=== PATIENT | female | born 1950 | race Caucasian/White ===

== ENCOUNTER 2017-04-01 09:17 | Day surgery (SDC) | payer BC ==
[~2017-04-01 09:17] MED LIST: Acetaminophen TAB* 325 MG PO PRN; Buffered Lidocaine 1% SYRIN* 3 ML/SYR SYRINGE INTRADERM ONE
[2017-04-01] MEDS ORDERED: fentaNYL* 50 MCG/ML 2 ML VIAL (100 MCG VIAL) ONE (11:00)
[2017-04-01] MEDS ORDERED: Midazolam* 1 MG/ML 2 ML VIAL (2 MG) ONE ×2 (11:00→12:08)
[2017-04-01 12:08] VITALS: BP 152/74
[2017-04-01] MEDS ORDERED: Proparacaine 0.5% OPHTH.SOL* 15 ML BTL ONE (12:47)
[2017-04-01] MEDS ORDERED: Povidone Iodine 5% OPTH* 30 ML BTL ONE (12:47)
[2017-04-01] MEDS ORDERED: acetaZOLAMIDE TAB* 250 MG ONE (12:47)
[2017-04-01] MEDS ORDERED: Flurbiprofen 0.03% OPTH.SOL* 2.5 ML BTL ONE (12:47)
[2017-04-01] MEDS ORDERED: Neomycin/Polymy/Dex OPTH.SUSP* MAXITROL 0.1% 5 ML ONE (12:47)
[2017-04-01] MEDS ORDERED: Lidocaine 2% EPI 1:200000 MPF* 20 ML VIAL ONE (12:47)
[2017-04-01] MEDS ORDERED: Cyclopentolate 1% OPTH.SOL* 2 ML BTL ONE (12:47)
[2017-04-01] MEDS ORDERED: Lidocaine 1% MPF* 2 ML VIAL ONE (12:47)
[2017-04-01] MEDS ORDERED: Phenylephrine 2.5% OPTH.SOL* 2 ML BTL ONE (12:47)
--- NOTE | 2017-04-01 15:04 | OP ---
DATE OF OPERATION: 04/01/17 - [facility] DATE OF : 54 SURGEON: Schuyler Saini M.D. PREOPERATIVE DIAGNOSIS: Cataract, left eye. POSTOPERATIVE DIAGNOSIS: Cataract, left eye. OPERATIVE PROCEDURE: Phacoemulsification, left eye with IOL. DESCRIPTION OF PROCEDURE: The patient was brought to the operating room after being given 1/2% Alcaine with epinephrine drops in the preoperative area. The eye was prepped and draped in the usual sterile fashion. Sterile drape and eyelid speculum were placed. Again, topical 1/2% Alcaine with epinephrine was given. A paracentesis incision was made at the 3 o'clock position with the No.75 blade. Clear cornea incision 2.2 x 2.2-mm was created at the 6 o'clock position starting at the anterior limbus using the 2.2-mm keratome. The anterior chamber was irrigated with 0.4 mL of 1% non-preservative intracameral lidocaine and filled with DisCoVisc. A capsulorrhexis was completed using the cystotome and the Utrata forceps. Hydrodissection was performed with balanced salt solution. The lens nucleus was removed with the Phacoemulsification handpiece without incident. Cortex was removed with the irrigation-aspiration handpiece. The capsular bag was re-inflated using DisCoVisc and an SN60WF 21.5 implant was inserted with the shooter. The irrigation-aspiration handpiece was used to remove all residual DisCoVisc. The eye was refilled with balanced salt solution and the wound checked and found to be watertight. Topical Maxitrol drops were given. [id number]/[facility] #: [id number] MTDD
== END 2017-04-01 12:15 | disposition home or self-care (01) ==
LOC: OREAST 09:17
PROVIDERS: ATTEND Specialist
DX: H25.12 Age-related nuclear cataract, left eye (principal); H04.123 Dry eye syndrome of bilateral lacrimal glands; I10 Essential (primary) hypertension; E78.00 Pure hypercholesterolemia, unspecified; F41.1 Generalized anxiety disorder
CPT/HCPCS: A9270-GY; J2250; J3010; V2632

== ENCOUNTER 2017-04-08 07:44 | Day surgery (SDC) | payer BC ==
[2017-04-08] MEDS ORDERED: Midazolam* 1 MG/ML 2 ML VIAL (2 MG) ONE (09:42)
[2017-04-08 10:36] VITALS: BP 141/71
--- NOTE | 2017-04-08 12:35 | OP ---
DATE OF OPERATION: 04/08/2017 - [facility] DATE OF : 1950. SURGEON: Schuyler Saini M.D. PREOPERATIVE DIAGNOSIS: Cataract right eye. POSTOPERATIVE DIAGNOSIS: Cataract right eye. OPERATIVE PROCEDURE: Phacoemulsification right eye with IOL. DESCRIPTION OF PROCEDURE: The patient was brought to the operating room after being given 1/2% Alcaine with epinephrine drops in the preoperative area. The eye was prepped and draped in the usual sterile fashion. Sterile drape and eyelid speculum were placed. Again, topical 1/2% Alcaine with epinephrine was given. A paracentesis incision was made at the 9 o'clock position with the No.75 blade. Clear cornea incision 2.2 x 2.2-mm was created at the 12 o'clock position starting at the anterior limbus using the 2.2-mm keratome. The anterior chamber was irrigated with 0.4 mL of 1% non-preservative intracameral lidocaine and filled with DisCoVisc. A capsulorrhexis was completed using the cystotome and the Utrata forceps. Hydrodissection was performed with balanced salt solution. The lens nucleus was removed with the Phacoemulsification handpiece without incident. Cortex was removed with the irrigation-aspiration handpiece. The capsular bag was re-inflated using DisCoVisc and an [id number] 22 implant was inserted with the shooter. The irrigation-aspiration handpiece was used to remove all residual DisCoVisc. The eye was refilled with balanced salt solution and the wound checked and found to be watertight. Topical Maxitrol drops were given. [id number]/[facility] #: [id number] [facility]
[2017-04-08] MEDS ORDERED: Phenylephrine 2.5% OPTH.SOL* 2 ML BTL ONE (14:11)
[2017-04-08] MEDS ORDERED: Flurbiprofen 0.03% OPTH.SOL* 2.5 ML BTL ONE (14:11)
[2017-04-08] MEDS ORDERED: Proparacaine 0.5% OPHTH.SOL* 15 ML BTL ONE (14:11)
[2017-04-08] MEDS ORDERED: Cyclopentolate 1% OPTH.SOL* 2 ML BTL ONE (14:11)
[2017-04-08] MEDS ORDERED: Povidone Iodine 5% OPTH* 30 ML BTL ONE (14:11)
[2017-04-08] MEDS ORDERED: acetaZOLAMIDE TAB* 250 MG ONE (14:11)
[2017-04-08] MEDS ORDERED: Lidocaine 2% EPI 1:200000 MPF* 20 ML VIAL ONE (14:11)
[2017-04-08] MEDS ORDERED: Neomycin/Polymy/Dex OPTH.SUSP* MAXITROL 0.1% 5 ML ONE (14:11)
[2017-04-08] MEDS ORDERED: Lidocaine 1% MPF* 2 ML VIAL ONE (14:11)
== END 2017-04-08 10:33 | disposition home or self-care (01) ==
LOC: OREAST 07:44
PROVIDERS: ATTEND Specialist
DX: H25.11 Age-related nuclear cataract, right eye (principal); H04.123 Dry eye syndrome of bilateral lacrimal glands; I10 Essential (primary) hypertension; K21.9 Gastro-esophageal reflux disease without esophagitis; E78.00 Pure hypercholesterolemia, unspecified; E55.9 Vitamin D deficiency, unspecified; F41.1 Generalized anxiety disorder
CPT/HCPCS: A9270-GY; J2250; V2632

== ENCOUNTER 2017-10-08 09:46 | Day surgery (SDC) | payer BC ==
[~2017-10-08 09:46] MED LIST changes: -Acetaminophen TAB* 325 MG PO PRN; +Buffered Lidocaine 0.9% SYRIN* 5 ML/SYR SYRINGE INTRADERM ONE; -Buffered Lidocaine 1% SYRIN* 3 ML/SYR SYRINGE INTRADERM ONE
[2017-10-08] MEDS ORDERED: Clindamycin 900 MG IVPREMIX(* 900 MG/50 ML SDV IV ONE (09:59)
[2017-10-08] MEDS ORDERED: fentaNYL* 50 MCG/ML 2 ML VIAL (100 MCG VIAL) ONE (10:15)
[2017-10-08] MEDS ORDERED: Midazolam* 1 MG/ML 2 ML VIAL (2 MG) ONE (10:15)
[2017-10-08] MEDS ORDERED: Propofol* 10 MG/ML 20 ML BTL IV PUSH ONE (10:22)
[2017-10-08] MEDS ORDERED: Lidocaine 1% INJ* 10 MG/ML 30 ML SDV ONE (10:57)
[2017-10-08] MEDS ORDERED: Dexamethasone IV* 4 MG/ML 1 ML (4 MG) ONE (10:57)
[2017-10-08] MEDS ORDERED: Bupivacaine 0.5% SDV PF* 30 ML VIAL ONE (10:57)
[2017-10-08] MEDS ORDERED: Ondansetron INJ* 2 MG/ML VIAL IV PRN (10:59)
[2017-10-08 12:45] VITALS: BP 122/68
--- NOTE | 2017-10-08 18:24 | OP ---
DATE OF OPERATION: 10/08/17 - [facility] DATE OF : 54 SURGEON: Amilcar Kaye DPM TACTICAL INTELLIGENCE OFFICER: None. ANESTHESIOLOGIST: Fede Whaley MD ANESTHESIA: MAC with local. 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 OPERATIVE PROCEDURE: Derotational arthroplasty for correction of 5th left hammertoe. PATHOLOGY: Degenerative bone. HEMOSTASIS: Pneumatic ankle tourniquet. 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 The painful skin lesion making it painful to wear any cloth shoes and it causes pain while walking. She opts for surgery at this time to attempt to decrease the pain and improve her function. DESCRIPTION OF PROCEDURE: The patient was brought to the operating room and placed on the operating room table in supine position. The anesthesia department administered IV sedation and a peripheral nerve block was performed about the left forefoot with a 1:1 mixture of 1% lidocaine plain and 0.5% Marcaine plain. The left foot was prepped and draped in the usual fashion. The left foot was then exsanguinated with an Esmarch bandage and the pneumatic ankle tourniquet was inflated to 250 mmHg above a well-padded left ankle. Attention was directed to the 5th left toe where two semi-elliptical incisions were made, oriented obliquely from distal medial more proximal lateral to allow for derotation of the digit. The resultant skin wedge was resected and a transverse tenotomy capsulotomy was performed to allow for exposure of the proximal interphalangeal joint. The proximal phalangeal head was resected in the lateral third of the middle phalanx was resected as well. A power lissette was used to smooth any rough edges. The surgical site was flushed with copious amounts of normal sterile saline. Next, the capsular tissues and tendon structures were reapproximated and secured by holding the digit in the derotated position with 4-0 Vicryl. Subcutaneous tissues were used for subcutaneous closure while again holding the digit in a derotated position and 5 -0 nylon was used for skin closure again while holding the digit in a derotated position. An 8 mg of dexamethasone phosphate were infiltrated about the 5th left toe and the surgical site was dressed with Xeroform gauze and a light compressive dressing was applied with a 4x4 gauze, Diane, and light Coban wrap. The digit was splinted in a derotated position prior to applying the rest the bandage. The pneumatic ankle tourniquet was deflated about the left ankle and a prompt hyperemic response was noted to all five digits of the patient's left foot. Having appeared to have tolerated the procedures and anesthesia well, the patient was transported via cart from the operating room to Recovery in satisfactory condition with capillary refill less than 3 seconds to all digits of the left foot. [id number]/[facility] #: [id number] MTDD
== END 2017-10-08 12:46 | disposition home or self-care (01) ==
LOC: OREAST 09:46
PROVIDERS: ATTEND Podiatrist Foot Surgery
DX: M20.42 Other hammer toe(s) (acquired), left foot (principal); Z68.34 Body mass index [BMI] 34.0-34.9, adult; I10 Essential (primary) hypertension; K21.9 Gastro-esophageal reflux disease without esophagitis; M19.90 Unspecified osteoarthritis, unspecified site; R42 Dizziness and giddiness; F41.8 Other specified anxiety disorders
CPT/HCPCS: 88304; 88311; J1100; J2001; J2250; J2704; J3010

== ENCOUNTER 2017-11-25 15:22 | Emergency (ER) | payer BC ==
--- NOTE | 2017-11-25 16:15 | UC ---
Complaint Female HPI - HPI Summary HPI Summary: 67 year old male presents with complains of burning and frequency of urination. - History Of Current Complaint Stated Complaint: URINARY COMPLAINT Time Seen by Provider: 11/25/17 16:14 Hx Obtained From: Patient Onset/Duration: Sudden Onset Timing: Constant Severity Initially: Moderate Severity Currently: Moderate Pain Scale Used: 0-10 Numeric - 5 Character: Sharp Aggravating Factor(s): Urination Alleviating Factor(s): Nothing Associated Signs And Symptoms: Positive: Negative - Allergies/Home Medications Allergies/Adverse Reactions: Allergies Allergy/AdvReac Type Severity Reaction Status Date / Time Cephalexin [From Keflex] Allergy Hives Verified 11/25/17 16:16 Codeine Allergy GI Upset Verified 11/25/17 16:16 Estradiol [From Climara] Allergy Blurred Verified 11/25/17 16:16 Vision Indapamide [From Lozol] Allergy Unknown Verified 11/25/17 16:16 Reaction Details Meclizine Allergy Dizziness Verified 11/25/17 16:16 Meloxicam Allergy CANNOT Verified 11/25/17 16:16 TAKE RELATED TO STOMACH TROUBLES Sertraline [From Zoloft] Allergy Unknown Verified 11/25/17 16:16 Reaction Details Tolterodine [From Detrol LA] Allergy Dizziness Verified 11/25/17 16:16 spicy food Allergy Hives Uncoded 11/25/17 16:16 PMH/Surg Hx/FS Hx/Imm Hx Previously Healthy: Yes - Surgical History Surgical History: Yes Surgery Procedure, Year, and Place: HYSTERECTOMY, CSECTION X 1 , TUBAL, CARPAL TUNNEL REPAIR BILATERALLY. 2016-CATARACT SURGERY BOTH EYES. RIGHT FOOT HAMMER TOE REPAIR - Family History Known Family History: Positive: None - Social History Alcohol Use: None Substance Use Type: None Smoking Status (MU): Never Smoked Tobacco Review of Systems Constitutional: Negative Skin: Negative Eyes: Negative ENT: Negative Respiratory: Negative Cardiovascular: Negative Gastrointestinal: Negative Genitourinary: Dysuria, Frequency, Urgency Motor: Negative Neurovascular: Negative Musculoskeletal: Negative Neurological: Negative Psychological: Negative All Other Systems Reviewed And Are Negative: Yes Physical Exam Triage Information Reviewed: Yes Vital Signs Reviewed: Yes Eye Exam: Normal ENT Exam: Normal Dental Exam: Normal Neck exam: Normal Respiratory Exam: Normal Cardiovascular Exam: Normal Abdominal Exam: Normal Bowel Sounds: Positive: Present Musculoskeletal Exam: Normal Complaint Female Dx - Differential Dx/Diagnosis Provider Diagnoses: burning with urination Discharge - Discharge Plan Condition: Stable Disposition: HOME Prescriptions: Sulfamethox/Trimethoprim DS* [Bactrim DS 800/160 TAB*] 1 tab PO BID #10 tab Patient Education Materials: Urinary Tract Infection in Women (ED) Referrals: Mack Hearn MD [Primary Care Provider] -
[2017-11-25 16:16] VITALS: BP 153/61
== END 2017-11-25 16:40 | disposition home or self-care (01) ==
LOC: UCCORT 15:22
DX: R30.9 Painful micturition, unspecified (principal)
CPT/HCPCS: 81003; 87086; 99212; G0463

== ENCOUNTER 2019-12-08 09:00 | Day surgery (SDC) | payer BC, MEDICARE ==
[~2019-12-08 09:00] MED LIST changes: -Buffered Lidocaine 0.9% SYRIN* 5 ML/SYR SYRINGE INTRADERM ONE; +Buffered Lidocaine 1% SYRIN* 1 ML/SYRINGE INTRADERM ONE; +Dexamethasone IV* 4 MG/ML 1 ML (4 MG) IV SLOW PU ONE; +Famotidine IV* 10 MG/ML 2 ML (20 mg) IV ONE; +HYDROcodone/ACETAMIN 5-325 MG* 1 TAB PO PRN; +Lactated Ringers 1000 ML Bag* 1,000 ML IV SCH; +Naloxone* 0.4 MG/ML 1 ML VIAL IV PRN; +fentaNYL* 50 MCG/ML 2 ML VIAL (100 MCG VIAL) IV PRN; +oxyCODONE/Acetamin 5/325 MG* TAB PO PRN
[2019-12-08] MEDS ORDERED: Dexamethasone IV* 4 MG/ML 1 ML (4 MG) ONE (09:27)
[2019-12-08] MEDS ORDERED: Famotidine IV* 10 MG/ML 2 ML (20 mg) ONE (09:29)
[2019-12-08] MEDS ORDERED: Ketorolac INJ* 30 MG/ML 1 ML VIAL ONE (09:55)
[2019-12-08] MEDS ORDERED: Midazolam* 1 MG/ML 5 ML VIAL (5 MG) ONE ×2 (09:55→10:36)
[2019-12-08] MEDS ORDERED: Propofol* 10 MG/ML 20 ML BTL ONE (09:55)
[2019-12-08] MEDS ORDERED: Lidocaine 2% PF * 5 ML VIAL ONE (09:55)
[2019-12-08] MEDS ORDERED: fentaNYL* 50 MCG/ML 2 ML VIAL (100 MCG VIAL) ONE (09:55)
[2019-12-08] MEDS ORDERED: Bupivacaine 0.25% SDV* 30 ML ONE (10:16)
[2019-12-08 11:52] VITALS: BP 121/70
--- NOTE | 2019-12-08 14:32 | OP ---
DATE OF OPERATION: 12/08/[address] [facility] DATE OF : 54 SURGEON: Hung Higginbotham MD. OLIVING MACHINE OPERATOR: NIHARIKA Leonard. ANESTHESIOLOGIST: Dr. Rushing. ANESTHESIA: Local MAC. PRE-OP DIAGNOSES: 1. Right middle trigger finger. 2. Right ring trigger finger. POST-OP DIAGNOSES: 1. Right middle trigger finger. 2. Right ring trigger finger. OPERATIVE PROCEDURE: 1. Right middle trigger finger release. 2. Right ring trigger finger release. INDICATIONS: Ms. Tolliver has pretty severe trigger fingers. We have talked about treatment options. She wanted to proceed. ESTIMATED BLOOD LOSS: 2 mL. COMPLICATIONS: None. FINDINGS: See above and below. DESCRIPTION OF PROCEDURE: Ms. Tolliver was seen in the preoperative holding area. The correct side, site, and procedures were identified. We came back to the operating room. The arm was prepped and draped in the usual fashion and time-out was performed. The arm was exsanguinated with the Esmarch and the tourniquet was inflated to 225 mmHg. I made a 1-cm longitudinal incision over the A1 charles of the right middle finger. Full-thickness flaps were raised off of the tendon sheath. Ragnell retractors were placed. The A1 charles was then incised longitudinally. The fascia proximally was released. The very leading edge of the A2 charles was released. The wound was irrigated out and the skin closed with 4-0 nylon suture. I then made a 1-cm incision over the A1 charles area of the ring finger in a similar fashion. Ragnell retractors were placed. The A1 charles was incised. When I completed the release and confirmed that there was no triggering, the wound was irrigated out and closed with 4-0 nylon suture. Soft dressings were applied, and she was taken to the recovery room in stable condition. [id number]/[facility] #: [id number] [facility]
== END 2019-12-08 12:11 | disposition home or self-care (01) ==
LOC: OREAST 09:00
PROVIDERS: ATTEND Orthopaedic Surgery Hand Surgery
DX: M65.331 Trigger finger, right middle finger (principal); M65.341 Trigger finger, right ring finger; I10 Essential (primary) hypertension; K21.9 Gastro-esophageal reflux disease without esophagitis; F41.8 Other specified anxiety disorders
CPT/HCPCS: J1100; J1885; J2250; J2704; J3010; J3490